=== PATIENT | female | born 1970 | race African-American/Black ===

== ENCOUNTER 2018-01-06 18:08 | Emergency (ER) | payer OTHER, SELFPAY ==
[2018-01-06 18:15] VITALS: BP 134/89; PULSE 105; RESP 16; TEMP 36.9; O2SAT 99; BMI 39.1
[2018-01-06 19:18] VITALS: BP 131/87; PULSE 100; RESP 18; O2SAT 98
--- NOTE | 2018-01-06 19:32 | ED_ITS ---
HPI - Head Injury General Chief complaint: Head Injury Stated complaint: THINKS SHE HAS A CONCUSION,FALL FROM HORSE YESTERD Time Seen by Provider: 01/06/18 19:15 Source: patient Mode of arrival: ambulatory Limitations: no limitations History of Present Illness HPI Narrative: Patient is a 47-year-old female here for evaluation of possible concussion and head injury. Patient states that yesterday she was thrown from a horse. She states she was wearing a helmet. States that she did land on the ground on my head no loss of consciousness but was dazed afterwards. Was able to ambulate afterwards. States that from the event she has had headaches and nausea without vomiting and wanted to come in for an evaluation. Related Data Previous Rx's Medication Instructions Recorded diphenhydramine HCl [Benadryl 25 mg PO Q6HP PRN #20 tab 08/05/17 Allergy] prednisone 60 mg PO SEE INSTRUCTIONS 7 Days 08/05/17 #0 tab Allergies Allergy/AdvReac Type Severity Reaction Status Date / Time mefenamic acid [From PONSTEL] Allergy Unknown Verified 01/06/18 18:19 topiramate [From TOPAMAX] Allergy Unknown Verified 01/06/18 18:19 tramadol [TRAMADOL] Allergy Unknown Verified 01/06/18 18:19 Review of Systems Constitutional Reports fatigue, Reports headache(s), Denies lethargy and Denies malaise Eyes Denies diplopia and Denies loss of vision ENT Ears, Nose, Mouth, and Throat: Denies dental pain, Reports dizziness, Reports headache(s), Denies nasal trauma and Denies disequilibrium Cardiovascular Denies chest pain, Denies syncope, Denies palpitations and Denies dyspnea Respiratory Denies cough and Denies dyspnea Gastrointestinal Gastrointestinal: Denies abdominal pain, Denies constipation, Denies diarrhea, Reports nausea and Denies vomiting Genitourinary Denies dysuria Musculoskeletal Comments: Right shoulder pain right-sided neck pain Integumentary/Breasts Denies lesions, Denies rash and Denies wounds Neurologic Denies behavioral changes, Denies confusion, Reports dizziness, Denies syncope, Reports headache(s), Denies lack of coordination, Denies loss of vision, Denies convulsions, Denies seizure-like activity and Denies disequilibrium Psychiatric Denies behavioral changes and Denies confusion Endocrine Reports fatigue and Denies palpitations Hematologic/Lymphatic Denies easy bleeding and Denies easy bruising [facility] Social History Smoking Status: Former smoker Exam Initial Vital Signs Initial Vital Signs: Vital Signs Temperature 98.4 F 01/06/18 18:15 Pulse Rate 105 H 01/06/18 18:15 Respiratory Rate 16 01/06/18 18:15 Blood Pressure 134/89 H 01/06/18 18:15 Pulse Oximetry 99 01/06/18 18:15 Const General: cooperative, healthy appearing, comfortable, well developed, well groomed and No acute distress Nutritional Appearance: average body habitus and well nourished Orientation: alert, awake and oriented x3 HENMT Head: normal to inspection, normocephalic and atraumatic Ears: hearing grossly normal bilaterally and TM's normal bilaterally Nose: external nose normal and septum normal Face and sinus: normal facial exam Mouth: oral mucosae normal and tongue normal Teeth and gingiva: dentition normal Throat: posterior oropharynx abnormal Eyes Sclera: sclerae normal Pupils: PERRL EOM: EOM intact bilaterally Neck Neck: normal visual inspection, full ROM and trachea midline Resp Effort & Inspection: normal respiratory effort Auscultation: clear to auscultation bilaterally, no rales, no rhonchi and no wheezes Cardio Rate: tachycardic Rhythm: regular rhythm Pulses: radial pulses present GI Inspection: non-distended Palpation: soft and No firm Back/Spine/Pelvis Cervical Spine: normal cervical lordosis, No collar present, cervical muscular tenderness, No pain with cervical ROM, No cervical spinal tenderness and No step off deformity Thoracic/Lumbar Spine: thoracic and lumbar spine normal to inspection Skin Lesions: no lesions Rashes: no rashes Wounds: no wounds Neuro General: alert, awake and oriented x3 Cranial Nerves: CN's II-XI intact bilaterally Cognition: normal cognition Speech: speech normal Gait: normal gait Motor: muscle tone normal throughout Sensory Exam: no sensory deficits noted Extrem General: normal to inspection, full ROM and capillary refill normal Scores GCS [place] coma scale eye opening: Spontaneous [place] coma scale verbal response: Orientated Harley coma scale motor response: Obey commands [place] coma scale total score: 15 Nexus Score for C-Spine Focal Neurologic deficit present: No Midline spinal tenderness present: No Altered level of conciousness present: No Intoxication present: No Distracting Injury Present: No Nexus Criteria for C-spine: 0 Course Vital Signs - 8 hr 01/06/18 18:15 01/06/18 19:18 Temperature 98.4 F Pulse Rate 105 H 100 H Respiratory Rate 16 18 Blood Pressure 134/89 H Blood Pressure [Right Arm] 131/87 H Pulse Oximetry 99 98 MDM - Head Injury MDM Narrative Medical decision making narrative: patient proximally 36 hr after her injury yesterday. No abnormal findings on the exam today. Will hold on head CT for now. Patient does not meet criteria per the [place] CT head rule. We did discuss close head injury and postconcussive syndrome. We discussed that the symptoms that she experience may last for a period of time. She was informed that she does need to follow up with her primary doctor regarding the symptoms. We did discuss that she needed to avoid activities that make the symptoms worse. She was given return precautions. She expressed understanding and agreement with plan. Discharge Plan Departure Patient Disposition: Home, Self-Care Clinical Impression: Closed head injury Discharge Date/Time: 01/06/18 19:48 Interventions: ED Discharge Assessment Last Done: 01/06/18 19:47 Instructions: Closed Head Injury Activity Restrictions/Additional Instructions: recommend that you call your primary doctor for a follow-up. Return to the emergency department for any symptoms that we discussed. Avoid activities where you could potentially hit Your head again until your symptoms have improved. Prescriptions: No Action prednisone 20 MG tablet 60 mg PO SEE INSTRUCTIONS 7 Days Qty: 0 RF: 0 diphenhydramine HCl [Benadryl Allergy] 25 MG tablet 25 mg PO Q6HP PRNQty: 20 RF: 0
== END 2018-01-06 19:48 | disposition home or self-care (01) ==
PROVIDERS: Emergency Provider Emergency Medicine
DX: S09.90XA Unspecified injury of head, initial encounter (principal); V80.010A Animal-rider injured by fall from or being thrown from horse in noncollision accident, initial encounter
CPT/HCPCS: 99282

== ENCOUNTER → 2018-03-12 07:30 | Outpatient (CLI) | payer OTHER, SELFPAY ==
--- NOTE | 2018-03-12 | DI.MRI.S_ITS ---
PROCEDURE: MR HEAD/BRAIN WO CON INDICATIONS: POSTCONCUSSION SYNDROME TECHNIQUE: Noncontrast axial T1 spin echo, axial T2 fast spin echo, sagittal and axial FLAIR, coronal T2 fast spin echo, axial gradient echo, axial diffusion and ADC through the brain. COMPARISON: None. FINDINGS: Image quality: Diagnostic, with note made of motion artifact. CSF Spaces: Basal cisterns are patent. No extra-axial fluid collections. Ventricles are normal in size and shape. Brain: No intracranial masses or hemorrhage. Sotelo/white matter interface is normal. Brainstem appears normal. Diffusion-weighted images demonstrate no acute ischemic insult. No chronic ischemic insults. Normal intravascular flow voids are present. Skull and face: Calvarium has normal marrow signal. Orbits appear normal. Sinuses: Sinuses and mastoids are clear. IMPRESSION: No findings of intracranial hemorrhage are seen. Normal brain MRI for age. Dictated by: Amadou Morrison M.D. on 03/12/2018 at 8:10 Approved by: Amadou Morrison M.D. on 03/12/2018 at 8:11
== END ==
PROVIDERS: PCP Family Medicine; Visit Provider Family Medicine
DX: F07.81 Postconcussional syndrome (principal)
CPT/HCPCS: 70551

== ENCOUNTER → 2019-10-11 06:19 | Outpatient (CLI) | payer OTHER, SELFPAY ==
--- NOTE | 2019-10-11 | DI.MRI.S_ITS ---
PROCEDURE: MR FOOT RT WO CON INDICATIONS: EFFUSION RIGHT FOOT AND LEFT ANKLE TECHNIQUE: Noncontrast sagittal T1 spin echo and T2 fast spin echo with fat saturation, long-axis T1 spin echo and T2 fast spin echo with fat saturation, short-axis T1 spin echo and T2 fast spin echo with fat saturation through the forefoot. COMPARISON: [facility], CR, XR FOOT 3VW RT, 05/03/2016, 14:14. FINDINGS: Image quality: There is mild inhomogeneous fat saturation. Bones and joints: No bone marrow contusions or fractures. No metatarsal stress reaction or stress fractures. The sesamoid bones appear in expected positions, without internal edema. There is mild metatarsophalangeal joint degeneration with mild cartilage thinning and minimal subchondral edema in the 1st metatarsal head. There is minimal joint fluid at the 1st metatarsophalangeal joint. No suspicious intraosseous lesions. Soft tissues: The visualized plantar foot muscles demonstrate normal signal and bulk. Visualized flexor and extensor tendons appear intact, without tenosynovitis. The distal insertions of the peroneus brevis and longus tendons appear intact. The principal Lisfranc ligament appears intact. Minimal intermetatarsal bursal fluid demonstrated within the 1st, 2nd, and 3rd metatarsal interspaces. No soft tissue ganglion cysts. Sagittal images demonstrate no evidence for plantar plate tears. IMPRESSION: 1. 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 2. Minimal intermetatarsal bursal fluid in the 1st, 2nd, and 3rd metatarsal interspaces. Dictated by: Emerson Mckoy M.D. on 10/11/2019 at 9:06 Approved by: Emerson Mckoy M.D. on 10/11/2019 at 9:15
--- NOTE | 2019-10-11 | DI.MRI.S_ITS ---
PROCEDURE: MR ANKLE LT WO CON INDICATIONS: EFFUSION RIGHT FOOT AND LEFT ANKLE TECHNIQUE: Noncontrast sagittal T1 spin echo and T2 fast spin echo with fat saturation, axial proton density fast spin echo and T2 fast spin echo with fat saturation, coronal T1 spin echo and T2 fast spin echo with fat saturation through the ankle/hindfoot. COMPARISON: None. FINDINGS: Image quality: There is mild inhomogeneous fat saturation. Bones and joints: No bone marrow contusions or fractures. No hindfoot coalitions. No osteochondral injuries of the talar dome. There is a small region of bone marrow edema along the plantar aspect of the navicular extending to the articulation with the medial cuneiform. No pathologic joint effusions. Medial structures: The posterior tibialis, flexor digitorum longus, and flexor hallucis longus tendons are intact. The posterior tibial neurovascular bundle appears normal within the tarsal tunnel, without extrinsic mass effect. The deltoid and spring ligaments appear intact. There is mild subcutaneous edema medially along the distal tibia. Lateral structures: The anterior talofibular, calcaneofibular, and posterior talofibular ligaments appear intact. More superiorly, the anterior and posterior tibiofibular ligaments appear intact, as is the intermalleolar ligament. The tibiofibular syndesmosis is normal in width at 2 mm or less. The peroneus longus and brevis tendons demonstrate normal location and morphology. Adjacent bony peroneal tubercle and retrotrochlear prominence are normal in size. The sinus tarsi demonstrates normal fatty signal, without edema, fibrosis, or cyst formation. The calcaneonavicular and calcaneocuboid components of the bifurcate ligament appear intact. The dorsal calcaneocuboid ligament appears intact. There is mild subcutaneous edema lateral to the distal fibular shaft. Anterior structures: The tibialis anterior, extensor hallucis longus, and extensor digitorum longus tendons appear intact. The dorsal talonavicular ligament appears intact. Posterior and plantar structures: Achilles tendon demonstrates mild tendinosis distally but appears intact. There is trace fluid in the retrocalcaneal bursa. Medial and lateral bands of the plantar fascia are of normal thickness. No abductor digiti quinti muscle atrophy to suggest Laureano neuropathy. IMPRESSION: 1. No joint effusions. 2. Mild subcutaneous edema along the medial and lateral aspects of the lower leg along the distal tibia and fibula. 3. Small region of bone marrow edema within the plantar aspect extending to its articulation with the medial cuneiform. Findings may represent degenerative subchondral edema or a small ganglion cyst. Dictated by: Emerson Mckoy M.D. on 10/11/2019 at 9:18 Approved by: Emerson Mckoy M.D. on 10/11/2019 at 9:25
== END ==
PROVIDERS: PCP Family Medicine; Referring Provider Podiatrist; Visit Provider Podiatrist
DX: M25.474 Effusion, right foot (principal); M25.472 Effusion, left ankle; R60.0 Localized edema
CPT/HCPCS: 73718; 73721

== ENCOUNTER → 2020-02-11 13:15 | Outpatient (CLI) | payer MEDICARE, OTHER, SELFPAY ==
--- NOTE | 2020-02-11 | DI.CT.S_ITS ---
PROCEDURE: CT SINUS SCREEN WO CON INDICATIONS: Other chronic sinusitis TECHNIQUE: Noncontrast 3.0 mm axial images acquired from the frontal sinuses to the mid-sella, with coronal and sagittal reformats. For radiation dose reduction, the following was used: automated exposure control, adjustment of mA and/or kV according to patient size. COMPARISON: None. FINDINGS: Image quality: Excellent. Sinuses: Minimal scattered ethmoid sinus mucosal thickening is present. There is mild mucosal thickening and fluid level within the sphenoid sinuses predominantly on the right. Ostiomeatal Complexes: Ostiomeatal complexes are patent. No Igor cells. Miscellaneous: Visualized intra-orbital contents are normal. No harry bullosa or paradoxical turbinate curvature. No nasal septal deviation. Middle turbinates are relatively atrophied compared to the inferior turbinates. IMPRESSION: 1. Scattered ethmoid mucosal thickening. Mild sphenoid mucosal thickening with fluid levels are identified. Acute sinusitis cannot be excluded. 2. Ostiomeatal complexes are patent. Dictated by: Cecille Urbano M.D. on 02/11/2020 at 14:19 Approved by: Cecille Urbano M.D. on 02/11/2020 at 14:20
== END ==
PROVIDERS: PCP Family Medicine; Referring Provider Otolaryngology; Visit Provider Otolaryngology
DX: J32.8 Other chronic sinusitis (principal); R51 Headache
CPT/HCPCS: 70486

== ENCOUNTER → 2021-10-10 14:44 | Outpatient (CLI) | payer MEDICARE, OTHER, SELFPAY ==
--- NOTE | 2021-10-10 | DI.ECHO.S_ITS ---
[place] +---------+ [facility] +---------+ : : [address] : : : : [address] : : : : Phone: [phone]+ Echocardiogram Report + + :Name: SAIMA DIAZ Study Date: 10/10/2021 Height: 67 in : :[facility] ReadingLocation: Weight: 290 lb : : Gender: Female BSA: 2.4 m2 : :: 1970 Age: 50 yrs BP: 158/98 mmHg: :Reason For Study: DYSPNEA : :Ordering Physician: NIMISHA, : :STEPHANI Knox Performed By: Amy Mena : :Referring: STEPHANI BANSAL : + + Interpretation Summary Patient is hypertensive during this exam 158/98mmHg. The left ventricle is normal in size. The ejection fraction is estimated to be 65-70%. The right ventricular systolic function is normal. Pulmonary artery pressures cannot be estimated because of the lack of a measurable TR jet velocity. No significant valvular disease. Procedure: A two-dimensional transthoracic echocardiogram with color flow and Doppler was performed. There is no prior echocardiogram noted for this patient. The study quality was technically difficult. A contrast injection of Definity was performed to improve assessment of LV function. The patient was in sinus rhythm with heart rates between 90-104 bpm during the exam. Left Ventricle: The left ventricle is normal in size. The estimated left ventricular end diastolic volume is 80 ml. RWT 0.65 suggesting [employer]. The ejection fraction is estimated to be 65-70%. Left ventricular wall motion is normal. Diastolic parameters suggest probable normal left ventricular diastolic function and normal filling pressures. Right Ventricle: The right ventricle is grossly normal size. The right ventricular systolic function is normal. Atria: The left atrial size is normal. Right atrial size is normal. There is no Doppler evidence for an interatrial shunt. Mitral Valve: The mitral valve is normal in structure and function. There is trace mitral regurgitation. Aortic Valve: The aortic valve opens well. There is no aortic valve stenosis. No aortic regurgitation is present. Tricuspid Valve: The tricuspid valve is normal in structure and function. There is a trace or physiologic amount of tricuspid regurgitation. Pulmonary artery pressures cannot be estimated because of the lack of a measurable TR jet velocity. Pulmonic Valve: The pulmonic valve leaflets are thin and pliable; valve motion is normal. There is a trace or physiologic amount of pulmonic regurgitation. Great Vessels: The aortic root is normal size. The dimensions of the ascending aorta are normal. The inferior vena cava was not well visualized. Pericardium/ Pleura There is no pericardial effusion. There is no pleural effusion. MMode/2D Measurements & Calculations LVIDd: 3.7 cm LVOT diam: 2.1 cm LVIDs: 1.9 cm Ao root diam: 3.6 cm FS: 47.7 % asc Aorta Diam: 3.1 cm IVSd: 1.3 cm Ao Arch Diam (Prox Trans): 2.2 cm LVPWd: 1.2 cm LV casillas. diameter/BSA (cm/m^2): 1.6 LV sys. diameter/BSA (cm/m^2): 0.82 LA A2 area: 17.8 cm2 RA long axis: 3.8 cm LA A4 area: 13.8 cm2 RA area: 11.8 cm2 LA length (vol): 4.3 cm RA vol: 30.8 ml LA vol: 49.1 ml RA : 13.0 ml/m2 LA vol index: 20.7 ml/m2 TAPSE: 1.8 cm Doppler Measurements & Calculations Ao V2 max: 161.9 cm/sec LVOT Max Maurisio: 131.4 cm/sec Ao V2 mean: 127.9 cm/sec LV V1 max P.9 mmHg Ao max P.5 mmHg LV V1 VTI: 22.2 cm Ao mean P.8 mmHg ELIZABETH(I,D): 2.8 cm2 Ao V2 VTI: 28.1 cm ELIZABETH(V,D): 2.9 cm2 sev ratio: 0.79 ELIZABETH indexed to BSA (cm^2/m^2): 1.2 MV E max maurisio: 57.6 cm/sec PA V2 max: 91.4 cm/sec MV A max maurisio: 80.9 cm/sec PA V2 mean: 68.8 cm/sec MV E/A: 0.71 PA mean P.0 mmHg Med Peak E' Maurisio: 7.5 cm/sec PA pr(Accel): 34.5 mmHg E/E' med: 7.7 Lat Peak E' Maurisio: 7.9 cm/sec E/E' lat: 7.3 E/e' average: 7.5 MV dec time: 0.20 sec SVLVOT): 79.2 ml Reading Physician:KATHARINA
== END ==
PROVIDERS: PCP Family Medicine; Referring Provider Physician Assistant; Visit Provider Physician Assistant
DX: R06.00 Dyspnea, unspecified (principal)
CPT/HCPCS: 93306; Q9957